=== PATIENT | female | born 1965 ===

== ENCOUNTER 2019-11-11 11:53 | Emergency (ER) | payer SELFPAY ==
--- NOTE | 2019-11-11 12:39 | UC ---
Respiratory Complaint HPI - HPI Summary HPI Summary: CHIEF COMPLAINT: shortness of breath, congestion, cough HPI: This is a 54 year old female with shortness of breath, cough and congestion for 3 days. Living with daughter for 4 days. Daughter positive for Covid 19. Feeling "o.k." With deep inhalation, a little discomfort. Non productive cough. No temp, no chills, but sweats at night. Hx. of asthma. VITAL SIGNS REVIEWED. Within normal limits unless noted here. NURSES NOTE REVIEWED. "PT states daughter tested (+) for covid. Daughter was tested 11/06. Pt has been living with daughter since 11/03. Pt c/o SOB, cold- like sx, fever (subjective) that started 11/07. " - History of Current Complaint Stated Complaint: RESP COMPLAINT Time Seen by Provider: 11/11/19 12:31 - Allergies/Home Medications Allergies/Adverse Reactions: Allergies Allergy/AdvReac Type Severity Reaction Status Date / Time No Known Allergies Allergy Verified 11/11/19 12:34 Home Medications: Home Medications Cetirizine* [ZyrTEC 10 MG TAB*] 10 mg PO DAILY 11/11/19 [History Confirmed 11/10] Fluticasone NASAL SPRAY 50MCG* [Flonase NASAL SPRAY 50MCG*] 2 spray BOTH NARES DAILY 11/11/19 [History Confirmed 11/11/19] Guaifenesin/Ephedrine HCl [Primatene Asthma Tablet] 1 each PO DAILY PRN [History Confirmed 11/11/19] PMH/Surg Hx/FS Hx/Imm Hx - Additional Past Medical History Additional PMH: PAST MEDICAL HISTORY- Positive, relevant past medical history: asthma. Patient denies history of: hypertension, cardiovascular disease, stroke, diabetes, cancer. CHRONIC or RECURRENT HEALTH PROBLEM LIST REVIEWED. VISIT HISTORY REVIEWED. MEDICATIONS & ALLERGIES REVIEWED. HYPERTENSION STATUS: No history of hypertension. FAMILY HISTORY: documented. SOCIAL HISTORY: Smoker: no Alcohol: no Employment: office work. Previously Healthy: Yes - Family History Known Family History: Positive: None - Social History Occupation: Employed Part-time Lives: With Family Alcohol Use: None Smoking Status (MU): Never Smoked Tobacco Review of Systems All Other Systems Reviewed And Are Negative: Yes Constitutional: Positive: Fever - subjective Respiratory: Positive: Shortness Of Breath, Cough Cardiovascular: Positive: Negative Gastrointestinal: Positive: Negative Genitourinary: Positive: Negative Is Patient Immunocompromised?: No Physical Exam - Summary Physical Exam Summary: O2 96%; 141/67. Appearance: The patient is well-appearing, is in no pain or distress, and is well-nourished. Eyes: Conjunctiva are clear. Pupils are equal and reactive to light and accommodation. Extra ocular muscle movement is intact. ENT: The hearing is grossly normal, the pharynx is normal, and the TMs are normal. There is no muffled or hoarse voice. No stridor. Neck: The neck is supple and there is no lymphadenopathy. Respiratory: The chest is non-tender to palpation and without crepitus. The lungs are clear, there are normal breath sounds, and there is no respiratory distress. No wheezes, rales or rhonchi. Cardiovascular: Heart sounds reveal a regular rate and rhythm. There are no clicks, rubs or murmurs. There are no carotid bruits or thrills. Circulation is grossly intact. Abdomen: The abdomen is soft and nontender. There is no organomegaly. Bowel sounds are present and within normal limits. No point tenderness at McBurneys point. No CVA tenderness. Musculoskeletal: Strength is intact. The patient moves all extremities. Neurological: The patient is alert. Motor and sensory are examination grossly intact. Speech is normal. Psychological: The patient displays age appropriate behavior, and is conversant. GCS=15. Skin: Negative for rashes. To decrease the risk of transmission of possible Covid 19, this patient's interview and examination was completed by phone, in conjunction with the nurse' s physical examination and using telemedicine. This examination process does limit the physical examination by the physician. Patient living with Covid positive patient. This could be Covid virus, and therefore Covid testing was completed. The Patient will follow-up wih the [facility]. If the patient feels worse she will go to the Emergency Department. The patient will self-isolate for 14 days. Appropriate instructions have been given to the patient. Triage Information Reviewed: Yes Vital Signs Reviewed: Yes Respiratory Course/Dx - Course Course Of Treatment: This is a 54 year old female with shortness of breath, cough and congestion for 3 days. Living with daughter for 4 days. Daughter positive for Covid 19. Feeling "o.k." With deep inhalation, a little discomfort. Non productive cough. No temp, no chills, but sweats at night. Hx. of asthma. Is getting more "wheezy." PMH: no admission; has had pneumonia. Family hx: CVD, DM. 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 Physical examination is within normal limits. Because of hx of asthma, I will diagnose bronchitis with bronchospasm and give patient albuterol and spacer. She is currently using Primatine. Patient will also follow up for her daughter. Patient living with Covid positive patient. This could be Covid virus, and therefore Covid testing was completed. The Patient will follow-up wi the [facility]. If the patient feels worse she will go to the Emergency Department. The patient will self-isolate for 14 days. Appropriate instructions have been given to the patient. - Differential Dx/Diagnosis Differential Diagnosis/HQI/PQRI: Asthma, Bronchitis, Lower Resp Infection Provider Diagnosis: Bronchospasm with bronchitis, acute Discharge ED - Sign-Out/Discharge Documenting (check all that apply): Patient Departure All imaging exams completed and their final reports reviewed: No Studies - Discharge Plan Condition: Stable Disposition: HOME Patient Education Materials: Bronchospasm (ED) Forms: COVID-19 Tested & Isolation Additional Instructions: WE DISCUSSED: I believe your symptoms are related to your history of asthma. However, we will also test you for coronavirus because of your daughter's condition. Please keep a close eye on her and on your own breathing status. PLEASE SEEK CARE AT THE EMERGENCY DEPARTMENT IF SYMPTOMS WORSEN OR IF NEW SYMPTOMS DEVELOP. FOLLOW UP WITH YOUR PRIMARY CARE PHYSICIAN IF CONDITION CONTINUES BEYOND 3 DAYS WITHOUT IMPROVEMENT. YOUR DIAGNOSIS IS: Bronchitis with bronchospasm; coronavirus exposure YOUR PRESCRIPTION RECOMMENDATION IS: Albuterol and spacer; 2 puffs up to 4 times a day for wheezing, mild shortness of breath, or cough. OTHER INSTRUCTIONS: Hypertension Discharge Instructions: Your blood pressure reading today was 141/67, indicating HYPERTENSION. Follow- up with your primary care provider within 4 weeks for blood pressure check and appropriate recommendations and treatment, as needed. FOR PAIN AND/OR SLEEP: For pain: Ibuprofen (Motrin and other brand names) 400-600mg PLUS acetaminophen (Tylenol and other brand names) 500mg - 1000mg every 8 hours. DO NOT TAKE IBUPROFEN IF YOU ARE BEING EVALUATED FOR COVID-19. This could be the Covid virus, and, therefore, Covid testing was completed. Follow-up with the [facility]. If you feel worse, go to the Emergency Department, but call first. You must self-isolate for 14 days or until you're released from quarantine by the [facility]. Other information: The most important goal is to liquefy all the phlegm and mucus, and get it out of your head and chest. For sore throat, it is important to keep throat moist and protected. Any illness causing cough, congestion, sore throat or sinus discomfort can be helped by doing the following: To clear you head, sinuses and chest of congestion: stand under a warm shower stream to loosen secretions. Use a vaporizor. Stay away from smoke or irritants. Use saline nasal spray or Neti Pot to keep the flow of mucus from your nostrils and sinuses. For sore throat: drink lots of warm fluids. Tea and honey is particularly useful because the honey can coat protect your throat. Gargle with warm water with 1/2 teaspoon of salt per 8 ounces of water. Gargle for a few seconds and spit out. Repeat every three hours. Keep your throat protected with lozenges. Don't let your throat dry out. Use a vaporizor at night. Make sure to check with your pharmacist if you are taking other prescription medication prior to taking any over the counter medications listed here. DECONGESTANTS: helps relieve stuffiness and clears sinuses. Pseudoephedrine ( Sudafed or generic) is effective but you need to ask the pharmacist for it because it may be kept behind the counter. ANTIHISTAMINES: are not helpful in many colds and flus because they can worsen sore throat, dry eyes and mouth and cause drowsiness. Examples are diphenhydramine, doxylamine and chlorpheniramine. They can help dry you out if you are having profuse, clear drainage from the nose or post-nasal drip. EXPECTORANTS: helps thin mucous in the nose and chest, making it easier to clear the fluid out. Expectorants are in most combination cough/cold remedies and should be taken with plenty of water. Guaifenesin is the most common expectorant and it comes in pill or liquid form. Mucinex is an extended release form of guaifenesin. COUGH SUPPRESSANT: reduces the body's cough reflex. Dextromethorphan is in over the counter products, but sometimes narcotics such as codeine or hydrocodone are used to suppress cough. SPECIFIC MEDICATIONS: The following medicines may help: To help with cough: DEXTROMETHORPHAN (Vicks, Robitussin, Nyquil and other brands) To help break up phlegm: GUAIFENESIN (Mucinex, Robitussin, other brands) To help clear congestion in the nose and sinuses: PSEUDOEPHEDRINE (Sudafed, Dimetapp, other brands) To help clear nasal congestion: AFRIN NASAL SPRAY: 2-3 SPRAYS PER NOSTRIL, TWICE A DAY FOR TWO DAYS ONLY. FLONASE: (or other steroid nasal sprays) can help if your running nose is caused by an allergy. It can help relieve congestion. It is used once a day in each nostril. Check the dose with your pharmacist. FOLLOW-UP: re-check in 10 days if you are not improving. Return here or see your caregiver. RE-CHECK SOONER if you have increased pain, temperature, cough, sinus symptoms, or difficulty breathing or swallowing. Go directly to Emergency Department if symptoms are severe. - Billing Disposition and Condition Condition: STABLE Disposition: Home
[2019-11-11] MEDS ORDERED: Albuterol HFA INHALER* 8 gm MDI INH ONE (13:53)
[2019-11-11] MEDS ORDERED: Albuterol HFA INHALER* 8 gm MDI INH SCH (14:00)
== END 2019-11-11 14:15 | disposition home or self-care (01) ==
LOC: UCEAST 11:53
DX: J20.9 Acute bronchitis, unspecified (principal); J45.909 Unspecified asthma, uncomplicated; Z20.828 Contact with and (suspected) exposure to other viral communicable diseases
CPT/HCPCS: 99202; A9270-GY; G0463; U0002